=== PATIENT | female | born 1985 | race African-American/Black ===

== ENCOUNTER 2021-12-08 10:24 | Emergency (ER) | payer MEDICAID, OTHER ==
[~2021-12-08] VITALS: Ht 160 cm; Wt 87.5 kg
[2021-12-08] MEDS ORDERED: SODIUM CHLORIDE 0.9% 500 ML IVB ONE (10:45)
[2021-12-08] MEDS ORDERED: MORPHINE SULFATE 4 MG/ML SYR/VIAL IV ONE (10:45)
[2021-12-08] MEDS ORDERED: ONDANSETRON HCL 4 MG/2 ML VIAL IV ONE (10:45)
[2021-12-08 11:09] LABS: Basophils # (auto) 0 10 ^3/uL (0-0.2); Basophils % (auto) 0.5 % (0.0-2.0); Eosinophils # (auto) 0.1 10 ^3/uL (0-0.8); Eosinophils % (auto) 1.1 % (0.0-7.0); Hematocrit 42.5 % (36.0-46.0); Hemoglobin 14.4 g/dL (12.2-16.2); Lymphocytes # (auto) 0.7 10 ^3/uL (0.4-5.4); Lymphocytes % (auto) 13.4 % (10.0-50.0); Mean Corpuscular Hemoglobin 31.4 pg (28.0-32.0); Mean Corpuscular Hgb Conc. 33.8 g/dL (32.0-36.0); Monocytes # (auto) 0.4 10 ^3/uL (0-1.3); Monocytes % (auto) 7.1 % (0.0-12.0); Neutrophils # (auto) 4.3 10 ^3/uL (1.6-8.6); Neutrophils % (auto) 77.9 % (37.0-80.0); Nucleated Red Blood Cells % 0.1 %; Red Blood Cells 4.57 10^6/uL (4.0-5.20); Red Cell Distribution Width 13.7 % (11.8-14.3); White Blood Cell 5.6 10^3/uL (4.4-10.8)
[2021-12-08 11:33] LABS: Urine Bacteria NONE SEEN /hpf (None Seen); Urine Blood TRACE /uL (Negative); Urine Mucus FEW (None Seen); Urine Specific Gravity 1.019 (1.001-1.035); Urine WBC <1 /hpf (0 - 5)
[2021-12-08 11:35] LABS: Albumin 3.6 g/dL (3.4-5.0); Calcium 8.6 mg/dL (8.5-10.1)
[2021-12-08 11:37] LABS: BUN/Creatinine Ratio 15.6
[2021-12-08 12:26] LABS: Bilirubin, Total 0.6 mg/dL (0.2-1.0); Total Protein 7.4 g/dL (6.4-8.2)
[2021-12-08] MEDS ORDERED: TRAM-297 PO (12:32)
[2021-12-08] MEDS ORDERED: ONDA-144 PO (12:32)
[2021-12-08 13:04] VITALS: BP 138/80
== END 2021-12-08 13:06 | disposition home or self-care (01) ==
LOC: ER 10:24
DX: R10.30 Lower abdominal pain, unspecified (principal); R11.0 Nausea; R19.7 Diarrhea, unspecified; I10 Essential (primary) hypertension; F17.210 Nicotine dependence, cigarettes, uncomplicated; Z79.899 Other long term (current) drug therapy
CPT/HCPCS: 36415; 74176; 80053; 81001; 81025; 82150; 83690; 84702; 85025; 96361; 96374; 96375; 99284; J2270; J2405; J7030

== ENCOUNTER 2023-01-31 09:04 | Emergency (ER) | payer MEDICAID ==
[~2023-01-31] VITALS: Ht 160 cm; Wt 97.4 kg
[~2023-01-31 09:04] MED LIST: ONDA-144 PO; TRAM-297 PO
[2023-01-31] MEDS ORDERED: hydrALAZINE HCL 20 MG/ML VL IV ONE ×2 (10:00→12:00)
[2023-01-31] MEDS ORDERED: ONDANSETRON HCL 4 MG/2 ML VIAL IV ONE (10:30)
[2023-01-31] MEDS ORDERED: diphenhdrAMINE HCL 50 MG/1 ML VL IV ONE (10:30)
[2023-01-31] MEDS ORDERED: KETOROLAC TROMETH 30 MG/ML 1ML VIAL IV ONE (10:30)
[2023-01-31 10:47] LABS: Albumin 3.3 g/dL (3.4-5.0); Calcium 8.2 mg/dL (8.5-10.1); Magnesium 2.3 mg/dL (1.6-2.6); Potassium 3.9 mmol/L (3.5-5.1)
[2023-01-31 10:51] LABS: BUN/Creatinine Ratio 15.6 (10.0-20.0); Bilirubin, Total 0.5 mg/dL (0.2-1.0); Total Protein 7.1 g/dL (6.4-8.2)
[2023-01-31 11:21] LABS: Basophils # (auto) 0 10 ^3/uL (0-0.2)
[2023-01-31 11:24] LABS: Basophils % (auto) 0.5 % (0.0-2.0); Eosinophils # (auto) 0.2 10 ^3/uL (0-0.8); Eosinophils % (auto) 1.9 % (0.0-7.0); Hematocrit 40.4 % (36.0-46.0); Hemoglobin 13.7 g/dL (12.2-16.2); Lymphocytes # (auto) 1.6 10 ^3/uL (0.4-5.4); Lymphocytes % (auto) 17.3 % (10.0-50.0); Mean Corpuscular Hemoglobin 31.1 pg (28.0-32.0); Mean Corpuscular Hgb Conc. 33.9 g/dL (32.0-36.0); Mean Corpuscular Volume 91.6 fL (80.0-100.0); Monocytes # (auto) 0.6 10 ^3/uL (0-1.3); Monocytes % (auto) 6.9 % (0.0-12.0); Neutrophils # (auto) 6.6 10 ^3/uL (1.6-8.6); Neutrophils % (auto) 73.4 % (37.0-80.0); Nucleated Red Blood Cells % 0.1 %; Red Blood Cells 4.41 10^6/uL (4.0-5.20); Red Cell Distribution Width 13.8 % (11.8-14.3)
[2023-01-31 11:56] LABS: Urine WBC None Seen /hpf (0 - 5)
[2023-01-31] MEDS ORDERED: NAP500T PO (12:16)
[2023-01-31] MEDS ORDERED: ONDA-144 PO (12:16)
[2023-01-31 12:23] LABS: Urine Bacteria NONE SEEN /hpf (None Seen); Urine Blood Negative /uL (Negative); Urine Specific Gravity 1.005 (1.001-1.035)
[2023-01-31 14:45] VITALS: BP 149/84
== END 2023-01-31 15:00 | disposition home or self-care (01) ==
LOC: ER 09:04
DX: G43.909 Migraine, unspecified, not intractable, without status migrainosus (principal); I16.0 Hypertensive urgency; I10 Essential (primary) hypertension; F17.210 Nicotine dependence, cigarettes, uncomplicated; R10.2 Pelvic and perineal pain; Z98.51 Tubal ligation status
CPT/HCPCS: 36415; 80053; 81001; 81025; 83735; 84484; 84702; 85025; 93005; 96374; 96375; 96376; 99284; J0360; J1200; J1885; J2405

== ENCOUNTER 2024-10-15 22:39 | Emergency (ER) | payer MEDICAID ==
[~2024-10-15] VITALS: Ht 160 cm; Wt 99.1 kg
[~2024-10-15 22:39] MED LIST changes: +NAP500T PO
[2024-10-15] MEDS: cloNIDine HCL 0.1 MG TAB PO ONE (23:00)
[2024-10-15] MEDS: FLUORESCEIN SOD OPTH TEST STRIP RIGHTEYE ONE (23:20)
[2024-10-15 23:21] VITALS: PULSE 97; RESP 18; TEMP 98.2; O2SAT 99
[2024-10-15] MEDS: ERYTHROMY OPTH OINT 5mg/gm 1gm or 3.5gm tube OP ONE (23:39)
[2024-10-15] MEDS ORDERED: ERY05OO OP (23:44)
[2024-10-15] MEDS ORDERED: AUG875T PO (23:44)
[2024-10-15] MEDS ORDERED: CLIN1CAP70 PO (23:44)
--- NOTE | 2024-10-15 23:45 | ED.PDOC ---
Eye-HPI HPI Comments 38-year-old female with past medical history pertinent for HTN, presents to ED for right eye discomfort x 1 day, associated with purulent discharge, swelling, redness, headache. Patient denies any recent trauma or injury. She denies any fever, chills, nausea, vomiting, pain with eye movement, facial numbness, facial tingling. She reports that she felt like there was an eyelash in her eye after which she rubbed her eye and the symptoms got worse. Patient states that she flushed her eye at home without relief of symptoms. No alleviating or aggravating factors. Chief Complaint: Eye Problem Time Seen by MD: 22:52 Reviewed Notes: Nurses Notes, Medications, Allergies Allergies: Coded Allergies: NO KNOWN ALLERGIES (Unverified , 12/08/21) Home Meds Active Scripts Ondansetron (Zofran) 4 Mg Tab, 4 MG PO Q8HP PRN, #14 MG Prov:JAYASHREE DE LA ROSA MD 01/31/23 Naproxen (NAPROSYN TABLET) 500 Mg Tb, 1 TAB PO BID, #20 TAB 1 Refill Prov:JAYASHREE DE LA ROSA MD 01/31/23 Tramadol Hcl (Ultram) 50 Mg Tab, 1 TAB PO Q6HR, #30 TAB Prov:RAOUL HERNANDEZ MD 12/08/21 Ondansetron (Zofran) 4 Mg Tab, 1 TAB PO Q6HR, #20 TAB Prov:RAOUL HERNANDEZ MD 12/08/21 Mode of Arrival: Ambulatory Past Medical History PAST MEDICAL HISTORY: HTN Surgical History: 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 Family History Family History: Family hx of heart ángel, Family hx of HTN, Family hx of stroke Social History Smoker: Cigarettes Alcohol: Occasionally Drugs: Denies Drug Use Lives In: Home Constitutional: denies: chills, diaphoresis, fatigue, fever, malaise, sweats, weakness, others EENTM: reports: eye pain, eye redness; denies: blurred vision, double vision, ear bleeding, ear discharge, ear drainage, ear pain, ear ringing, hearing loss, mouth pain, mouth swelling, nasal discharge, nose bleeding, nose congestion, nose pain, photophobia, tearing, throat pain, throat swelling, voice changes, others Respiratory: denies: cough, hemoptysis, orthopnea, SOB at rest, shortness of breath, SOB with excertion, stridor, wheezing, others Cardiovascular: denies: chest pain, dizzy spells, diaphoresis, Dyspnea on exertion, edema, irregular heart beat, left arm pain, lightheadedness, palpitations, PND, syncope, others Gastrointestinal: denies: abdomen distended, abdominal pain, blood streaked bowels, constipated, diarrhea, dysphagia, difficulty swallowing, hematemesis, melena, nausea, poor appetite, poor fluid intake, rectal bleeding, rectal pain, vomiting, others Genitourinary: denies: abnormal vagina bleeding, burning, dyspareunia, dysuria, flank pain, frequency, hematuria, incontinence, pain, , vagina discharge, urgency, others Neurological: reports: headache; denies: dizziness, fainting, left sided numbness, left sided weakness, numbness, paresthesia, pre-existing deficit, right sided numbness, right sided weakness, seizure, speech problems, tingling, tremors, weakness, others Musculoskeletal: denies: back pain, gout, joint pain, joint swelling, muscle pain, muscle stiffness, neck pain, others Integumetry: denies: bruises, change in color, change in hair/nails, dryness, laceration, lesions, lumps, rash, wounds, others Allergic/Immunocompromised: denies: Difficulty Healing, Frequent Infections, Hives, Itching, others Hematologic/Lymphatic: denies: anemia, blood clots, easy bleeding, easy bruising, swollen glands, others Endocrine: denies: excessive hunger, excessive sweating, excessive thirst, excessive urination, flushing, intolerance to cold, intolerance to heat, unexplained weight gain, unexplained weight loss, others Psychiatric: denies: anxiety, bipolar disorder, depression, hopeless, panic disorder, schizophrenia, sleepless, suicidal, others All Other Systems: Reviewed and Negative Physical Exam General Appearance: No Apparent Distress, Normal HEENT: Pharynx Normal, TMs Normal, Other (Right conjunctiva is injected. Purulent discharge noted. There is mild surrounding orbital of edema. No tenderness to palpation to the globe. Normal eye movement. Negative opthalmoplegia. No signs of intraorbital trauma) Neck: Full Range of Motion, Non-Tender, Normal, Normal Inspection Respiratory: Chest Non-Tender, Lungs Clear, No Accessory Muscle Use, No Respiratory Distress, Normal Breath Sounds Cardiovascular: No Edema, No JVD, No Murmur, No Gallop, Normal Peripheral Pulses, Regular Rate/Rhythm Breast Exam: Deferred Gastrointestinal: No Organomegaly, Non Tender, No Pulsatile Mass, Normal Bowel Sounds, Soft Genitalia: Deferred Pelvic: Deferred Rectal: Deferred Extremities: No calf tenderness, Normal capillary refill, Normal inspection, Normal range of motion, Non-tender, No pedal edema Musculoskeletal : Apperance: Normal Neurologic: Alert, label maker II-XII nml as Tested, No Motor Deficits, Normal Affect, Normal Mood, No Sensory Deficits Cerebellar Function: Normal Reflexes: Normal Skin: Dry, Normal Color, Warm Lymphatic: No Adenopathy Was a procedure done? Was a procedure done?: No EENT DIFF Eye: Conjunctivitis, Allergic, Bacterial, Viral, Orbital Cellulits, Periorbital Cellulits X-Ray, Labs, Meds, VS Vital Signs Date Time Temp Pulse Resp B/P (MAP) Pulse Ox O2 Delivery O2 Flow Rate FiO2 10/15/24 23:21 98.2 97 18 161/119 (133) 99 98.2 10/15/24 23:21 97 18 99 Room Air 10/15/24 23:00 161/119 10/15/24 22:45 98.2 97 18 161/119 (133) 99 Current Medications Medications (Trade) Dose Ordered Sig/Catherine Route Start Time Stop Time Status Last Admin Clonidine HCl (Catapres Tablet) 0.1 mg ONCE ONCE PO 10/15/24 23:00 10/15/24 23:01 DC 10/15/24 23:00 Fluorescein Sodium (Ful-Modesta) 1 mg ONCE ONCE RIGHTEYE 10/15/24 23:15 10/15/24 23:23 DC 10/15/24 23:20 X-Ray, Labs, Meds, VS Comment MDM: Patient with history as above presented with right eye pain. History obtained from patient. Patient was nontoxic, stable, afebrile, ambulatory, no acute distress. Exam as above. Reviewed external records. All findings were discussed with the patient. Differential diagnosis considered. Overall presentation is consistent with bacterial conjunctivitis with possible early periorbital cellulitis. Low suspicion for orbital cellulitis, intra orbital trauma, globe rupture, foreign body. Patient was treated with clonidine for blood pressure with improvement in symptoms. Patient was given a dose of erythromycin ointment in the ED. Patient was reevaluated and vital signs were reviewed. Consideration was given for admission, but the patient was stable for outpatient management. Prescribed erythromycin ointment for bacterial conjunctivitis treatment. Also prescribed oral antibiotics to cover for possible early onset of periorbital cellulitis. Disposition: Discussed the need to follow up diagnostics, including incidental findings. Discharged the patient with instructions to obtain outpatient follow up in 1-2 days of today's symptoms and findings, with strict return precautions if patient develops new or worsening symptoms. This medical document was created using the Novel [employer] system. Although this document has been carefully reviewed, there may still be some ph onetic and typographical errors, which are due to imperfections of the software program, and do not reflect any compromise in the patient's medical care. Time of 1ST Reevaluation: 23:42 Reevaluation 1ST: Improved Patient Education/Counseling: Diagnosis, Treatment, Prognosis, Need For Follow Up Family Education/Counseling: No Family Present Departure 1 Departure Time of Disposition: 23:41 Impression: Primary Impression: Bacterial conjunctivitis Disposition: 01 HOME / SELF CARE / HOMELESS Condition: Fair e-Prescriptions Erythromycin (Erythromycin) 5 Mg/Gm Oin 1 MG OP 5XD for 7 Days, #1 OIN Prov: JOSE DE JESUS VASQUEZ 10/15/24 Amoxicillin & Pot Clavulanate (AUGMENTIN TABLET) 875 Mg Tb 875 MG PO BID for 7 Days, #14 TAB Prov: JOSE DE JESUS VASQUEZ 10/15/24 Clindamycin Hcl (Clindamycin Hcl) 300 Mg Cap 1 CAP PO TID for 7 Days, #21 CAP Prov: JOSE DE JESUS VASQUEZ 10/15/24 Critical Care Note Critical Care Time?: No Stability Stability form required: No Heart Score Heart Score: Heart Score Response (Comments) Value History N/A 0 EKG N/A 0 Age N/A 0 Risk Factors N/A 0 Troponin N/A 0 Total 0 JOSE DE JESUS VASQUEZ Oct 15, 2024 23:45
[2024-10-15 23:49] VITALS: BP 168/102
[2024-10-15] MEDS ORDERED: FLUC150T38 PO (23:51)
== END 2024-10-16 00:15 | disposition home or self-care (01) ==
LOC: ER 22:39
DX: H10.89 Other conjunctivitis (principal); H57.11 Ocular pain, right eye; H57.12 Ocular pain, left eye; I10 Essential (primary) hypertension; F17.210 Nicotine dependence, cigarettes, uncomplicated; Z98.51 Tubal ligation status; Z79.899 Other long term (current) drug therapy

== ENCOUNTER 2025-03-09 17:03 | Emergency (ER) | payer MEDICAID ==
[~2025-03-09] VITALS: Ht 160 cm; Wt 94.0 kg
[~2025-03-09 17:03] MED LIST changes: +AUG875T PO; +CLIN1CAP70 PO; +ERY05OO OP; +FLUC150T38 PO
[2025-03-09 17:57] LABS: Urine Bacteria None Seen /hpf (None Seen)
--- NOTE | 2025-03-09 18:00 | ED.PDOC ---
GI ASSESSMENT HPI Comments This is a 39 year old female presenting to the ED with chief complaint of abdominal pain. Patient reports that she has been experiencing epigastric abdominal pain with associated radiation to her back, nausea, vomiting, chills, and weakness since last night. Patient relays that her pain is a 10/10. Patient denies any diarrhea, dysuria, fever, headache, chest pain, SOB, hematuria, or flank pain. Chief Complaint: Abdominal Pain Time Seen by MD: 17:58 Primary Care Provider: RUBEN Reviewed Notes: Nurses Notes, Medications, Allergies Allergies: Coded Allergies: NO KNOWN ALLERGIES (Unverified , 12/08/21) Home Meds Active Scripts Ondansetron Odt 4MG Tab (ZOFRAN PO) 4 Mg Tb, 4 MG PO Q8HP PRN for 5 Days, #15 TAB ODT TAB-DISSOLVE IN MOUTH, THEN SWALLOW Prov:RAOUL HERNANDEZ MD 03/09/25 Pantoprazole Sodium Sesquihydr (Protonix) 40 Mg Tab, 40 MG PO DAILY, #30 TAB Prov:RAOUL HERNANDEZ MD 03/09/25 Fluconazole (Diflucan) 150 Mg Tab, 1 TAB PO ONCE, #1 TAB 1 Refill Prov:JOSE DE JESUS VASQUEZ 10/15/24 Erythromycin (Erythromycin) 5 Mg/Gm Oin, 1 MG OP 5XD for 7 Days, #1 OIN Prov:JOSE DE JESUS VASQUEZ 10/15/24 Amoxicillin & Pot Clavulanate (AUGMENTIN TABLET) 875 Mg Tb, 875 MG PO BID for 7 Days, #14 TAB Prov:JOSE DE JESUS VASQUEZ 10/15/24 Clindamycin Hcl (Clindamycin Hcl) 300 Mg Cap, 1 CAP PO TID for 7 Days, #21 CAP Prov:JOSE DE JESUS VASQUEZ 10/15/24 Ondansetron (Zofran) 4 Mg Tab, 4 MG PO Q8HP PRN, #14 MG Prov:JAYASHREE DE LA ROSA MD 01/31/23 Naproxen (NAPROSYN TABLET) 500 Mg Tb, 1 TAB PO BID, #20 TAB 1 Refill Prov:JAYASHREE DE LA ROSA MD 01/31/23 Tramadol Hcl (Ultram) 50 Mg Tab, 1 TAB PO Q6HR, #30 TAB Prov:RAOUL HERNANDEZ MD 12/08/21 Ondansetron (Zofran) 4 Mg Tab, 1 TAB PO Q6HR, #20 TAB Prov:RAOUL HERNANDEZ MD 12/08/21 Information Source: Patient Mode of Arrival: Ambulatory Timing: Days Duration: Since onset Prehospital treatment: None Quality: Sharp Vomitus: Watery Stool: Normal Severity: Moderate Recent: None Recent Hx of: None Pain Location: Epigastric Modifying Factors: Nothing Associated sign and symptoms: Nausea, Vomiting, Abdominal Pain Past Medical History PAST MEDICAL HISTORY: HTN Past Medical History (Other): IBS Surgical History: BTL Surgical History (Other): 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 Family History Family History: Reviewed,noncontributory to illness, Family hx of heart ángel, Family hx of HTN, Family hx of stroke Social History Smoker: Cigarettes Alcohol: Occasionally Drugs: Marijuana Lives In: Home Constitutional: reports: chills, weakness; denies: diaphoresis, fatigue, fever, malaise, sweats, others EENTM: denies: blurred vision, double vision, ear bleeding, ear discharge, ear drainage, ear pain, ear ringing, eye pain, eye redness, hearing loss, mouth pa in, mouth swelling, nasal discharge, nose bleeding, nose congestion, nose pain, photophobia, tearing, throat pain, throat swelling, voice changes, others Respiratory: denies: cough, hemoptysis, orthopnea, SOB at rest, shortness of breath, SOB with excertion, stridor, wheezing, others Cardiovascular: denies: chest pain, dizzy spells, diaphoresis, Dyspnea on exertion, edema, irregular heart beat, left arm pain, lightheadedness, palpitations, PND, syncope, others Gastrointestinal: reports: abdominal pain, nausea, vomiting; denies: abdomen distended, blood streaked bowels, constipated, diarrhea, dysphagia, difficulty swallowing, hematemesis, melena, poor appetite, poor fluid intake, rectal bleeding, rectal pain, others Genitourinary: denies: abnormal vagina bleeding, burning, dyspareunia, dysuria, flank pain, frequency, hematuria, incontinence, pain, , vagina discharge, urgency, others Neurological: denies: dizziness, fainting, headache, left sided numbness, left sided weakness, numbness, paresthesia, pre-existing deficit, right sided numbness, right sided weakness, seizure, speech problems, tingling, tremors, weakness, others Musculoskeletal: denies: back pain, gout, joint pain, joint swelling, muscle pain, muscle stiffness, neck pain, others Integumetry: denies: bruises, change in color, change in hair/nails, dryness, laceration, lesions, lumps, rash, wounds, others Allergic/Immunocompromised: denies: Difficulty Healing, Frequent Infections, Hives, Itching, others Hematologic/Lymphatic: denies: anemia, blood clots, easy bleeding, easy bruising, swollen glands, others Endocrine: denies: excessive hunger, excessive sweating, excessive thirst, excessive urination, flushing, intolerance to cold, intolerance to heat, unexplained weight gain, unexplained weight loss, others Psychiatric: denies: anxiety, bipolar disorder, depression, hopeless, panic disorder, schizophrenia, sleepless, suicidal, others All Other Systems: Reviewed and Negative Physical Exam General Appearance: Moderate Distress, Obese HEENT: Normal ENT Inspection, Pharynx Normal, TMs Normal Neck: Full Range of Motion, Non-Tender, Normal, Normal Inspection Respiratory: Chest Non-Tender, Lungs Clear, No Accessory Muscle Use, No Respiratory Distress, Normal Breath Sounds Cardiovascular: No Edema, No JVD, No Murmur, No Gallop, Normal Peripheral Pulses, Regular Rate/Rhythm Breast Exam: Deferred Gastrointestinal: Epigastric, No Organomegaly, No Pulsatile Mass, Normal Bowel Sounds, Soft, Tenderness Genitalia: Deferred Pelvic: Deferred Rectal: Deferred Extremities: No calf tenderness, Normal capillary refill, Normal inspection, Normal range of motion, Non-tender, No pedal edema Musculoskeletal : Apperance: Normal Neurologic: Alert, electrician radio II-XII nml as Tested, Motor Weakness, Normal Affect, Normal Mood, No Sensory Deficits Cerebellar Function: Normal Reflexes: Normal Skin: Dry, Normal Color, Warm Lymphatic: No Adenopathy Was a procedure done? Was a procedure done?: No GI differential Dx Differential Diagnosis: Appendicitis, Cholangitis, Cholecystitis, Gastritis/PUD, Gastroenteritis, Inflammatory BD, Ischemic Bowel, Electrolyte Imbalance, Food Poisoning X-Ray, Labs, Meds, VS Vital Signs Date Time Temp Pulse Resp B/P (MAP) Pulse Ox O2 Delivery O2 Flow Rate FiO2 03/09/25 20:07 98.4 72 18 148/107 (121) 98 98.4 6/6/25 17:27 98.4 74 20 168/112 (130) 97 98.4 Lab Test 03/09/25 18:04 03/09/25 00:00 Range/Units White Blood Count 9.3 4.4-10.8 10^3/uL Red Blood Count 4.66 4.0-5.20 10^6/uL Hemoglobin 14.1 12.2-16.2 g/dL Hematocrit 41.6 36.0-46.0 % Mean Corpuscular Volume 89.2 80.0-100.0 fL Mean Corpuscular Hemoglobin 30.3 28.0-32.0 pg Mean Corpuscular Hemoglobin Concent 33.9 32.0-36.0 g/dL Red Cell Distribution Width 14.2 11.8-14.3 % Platelet Count 260 140-450 10^3/uL Mean Platelet Volume 8.9 6.9-10.8 fL Neutrophils (%) (Auto) 83.4 H 37.0-80.0 % Lymphocytes (%) (Auto) 11.7 10.0-50.0 % Monocytes (%) (Auto) 3.9 0.0-12.0 % Eosinophils (%) (Auto) 0.6 0.0-7.0 % Basophils (%) (Auto) 0.4 0.0-2.0 % Neutrophils # (Auto) 7.8 1.6-8.6 10 ^3/uL Lymphocytes # (Auto) 1.1 0.4-5.4 10 ^3/uL Monocytes # (Auto) 0.4 0-1.3 10 ^3/uL Eosinophils # (Auto) 0.1 0-0.8 10 ^3/uL Basophils # (Auto) 0 0-0.2 10 ^3/uL Nucleated Red Blood Cells 0.0 % Sodium Level 142 136-145 mmol/L Potassium Level 3.8 3.5-5.1 mmol/L Chloride Level 112 H 98-107 mmol/L Carbon Dioxide Level 22 20-31 mmol/L Anion Gap 8 5-15 Blood Urea Nitrogen 8 L 9-23 mg/dL Creatinine 0.69 0.550-1.02 mg/dL Glomerular Filtration Rate Calc 113 >90 mL/min BUN/Creatinine Ratio 11.6 10.0-20.0 Serum Glucose 94 74-106 mg/dL Calcium Level 9.5 8.7-10.4 mg/dL Total Bilirubin 0.5 0.2-1.0 mg/dL Aspartate Amino Transferase (AST) 12 L 13-40 U/L Alanine Aminotransferase (ALT) < 9 7-40 U/L Alkaline Phosphatase 69 46-116 U/L Total Protein 7.6 5.7-8.2 g/dL Albumin 4.5 3.2-4.8 g/dL Lipase 29 12-53 U/L Beta HCG, Quantitative 0.6 L 1.5-4.2 mIU/mL Urine Color Light-yellow Yellow Urine Clarity Clear Clear Urine pH 7.0 5.0-9.0 Urine Specific [place] 1.023 1.001-1.035 Urine Protein Negative Negative Urine Ketones Negative Negative Urine Blood Negative Negative /uL Urine Nitrite Negative Negative Urine Bilirubin Negative Negative Urine Urobilinogen Normal Negative mg/dL Urine Leukocyte Esterase Negative Negative /uL Urine RBC 1 0 - 4 /hpf Urine Microscopic WBC < 1 0-5 /HPF Urine Squamous Epithelial Cells Few <5 /hpf Urine Bacteria None seen None Seen /hpf Urine Glucose Normal Normal mg/dL Gallbladder US indicates: NORMAL ABDOMINAL ULTRASOUND. The patient's urine test is negative The patient's CBC is within normal limits The chemistry panel is within normal limits The lipase and liver enzymes are negative The test is negative The patient was given Protonix as well as Compazine and morphine for the pain and nausea The patient is being discharged The patient will follow up with the primary care doctor The patient will return to the emergency department's condition worsens. Images Reviewed?: Images reviewed and evaluated by me Time of 1ST Reevaluation: 19:46 Reevaluation 1ST: Unchanged Patient Education/Counseling: Diagnosis, Treatment, Prognosis, Need For Follow Up Family Education/Counseling: No Family Present Additional Information Reviewed patient's previous visit(s): 10/15/24 for bacterial conjunctivitis The following tests were ordered, and results were reviewed by me: CBC, CMP, UA, Lipase, BHCG Quant, Gallbladder US Additional information was gathered from interviewing the following independent historian: NONE I reviewed and agreed with the following test results read by other provider: Gallbladder US I discussed treatments and results with medical personnel and: Patient Comprehensive systems review obtained and negative except for what is stated in the HPI. Departure 1 Departure Time of Disposition: 20:17 Impression: Primary Impression: Abdominal pain of unknown etiology Additional Impression: Cannabinoid hyperemesis syndrome Disposition: HOME / SELF CARE / HOMELESS Condition: Fair e-Prescriptions Ondansetron Odt 4MG Tab (ZOFRAN PO) 4 Mg Tb 4 MG PO Q8HP PRN for 5 Days, #15 TAB ODT TAB-DISSOLVE IN MOUTH, THEN SWALLOW Prov: RAOUL HERNANDEZ MD 03/09/25 Pantoprazole Sodium Sesquihydr (Protonix) 40 Mg Tab 40 MG PO DAILY, #30 TAB Prov: RAOUL HERNANDEZ MD 03/09/25 Discharged With: Self Critical Care Note Critical Care Time?: No Stability Stability form required: No Heart Score Heart Score: Heart Score Response (Comments) Value History N/A 0 EKG N/A 0 Age N/A 0 Risk Factors N/A 0 Troponin N/A 0 Total 0 I personally scribed for RAOUL HERNANDEZ MD ([email or web address]) on 03/09/25 at 18:00. Electronically submitted by Tanvir Sherwood ([email or web address]). I personally scribed for RAOUL HERNANDEZ MD ([email or web address]) on 03/09/25 at 18:12. Electronically submitted by Tanvir Sherwood ([email or web address]). I personally scribed for RAOUL HERNANDEZ MD ([email or web address]) on 03/09/25 at 18:51. Electronically submitted by Tanvir Sherwood ([email or web address]). RAOUL HERNANDEZ MD Mar 09, 2025 18:00
[2025-03-09 18:24] LABS: Basophils # (auto) 0 10 ^3/uL (0-0.2); Basophils % (auto) 0.4 % (0.0-2.0); Eosinophils # (auto) 0.1 10 ^3/uL (0-0.8); Eosinophils % (auto) 0.6 % (0.0-7.0); Hematocrit 41.6 % (36.0-46.0); Hemoglobin 14.1 g/dL (12.2-16.2); Lymphocytes # (auto) 1.1 10 ^3/uL (0.4-5.4); Lymphocytes % (auto) 11.7 % (10.0-50.0); Mean Corpuscular Hemoglobin 30.3 pg (28.0-32.0); Mean Corpuscular Hgb Conc. 33.9 g/dL (32.0-36.0); Mean Corpuscular Volume 89.2 fL (80.0-100.0); Monocytes # (auto) 0.4 10 ^3/uL (0-1.3); Monocytes % (auto) 3.9 % (0.0-12.0); Neutrophils # (auto) 7.8 10 ^3/uL (1.6-8.6); Neutrophils % (auto) 83.4 % (37.0-80.0); Platelet Count (auto) 260 10^3/uL (140-450); Red Blood Cells 4.66 10^6/uL (4.0-5.20); Red Cell Distribution Width 14.2 % (11.8-14.3); White Blood Cell 9.3 10^3/uL (4.4-10.8)
[2025-03-09 18:25] LABS: Urine Blood Negative /uL (Negative); Urine Clarity Clear (Clear); Urine Color Light-Yellow (Yellow); Urine Protein, UAD Negative (Negative); Urine Specific Gravity 1.023 (1.001-1.035); Urine Squamous Epithelial Cell FEW /hpf (<5); Urine Urobilinogen Normal (Negative); Urine WBC < 1 /HPF (0-5)
[2025-03-09 18:40] LABS: Albumin 4.5 g/dL (3.2-4.8); Alkaline Phosphatase 69 U/L (46-116); Anion Gap 8 (5-15); BUN/Creatinine Ratio 11.6 (10.0-20.0); Bilirubin, Total 0.5 mg/dL (0.2-1.0); Calcium 9.5 mg/dL (8.7-10.4); Carbon Dioxide 22 mmol/L (20-31); Glucose 94 mg/dL (74-106); Potassium 3.8 mmol/L (3.5-5.1); Sodium 142 mmol/L (136-145); Total Protein 7.6 g/dL (5.7-8.2)
[2025-03-09 18:45] LABS: Alanine Aminotransferase < 9 U/L (7-40); Aspartate Aminotransferase 12 U/L (13-40); Blood Urea Nitrogen 8 mg/dL (9-23); Chloride 112 mmol/L (98-107)
--- NOTE | 2025-03-09 18:45 | DVH ---
ULTRASOUND ABDOMEN, LIMITED RIGHT UPPER QUADRANT: REASON FOR EXAM: Abdominal pain. Nausea and vomiting. TECHNIQUE: Real-time sector scans in the transverse and longitudinal planes were obtained through th e right upper quadrant of the abdomen. FINDINGS: The liver is of normal size and contour. There is no intrahepatic nor extrahepatic biliar y ductal dilatation. There is hepatopetal flow in the portal vein. The common bile duct measures 5 m m. No gallstones or sludge are identified. There is no gallbladder wall thickening nor pericholecys tic fluid. There is no sonographic Kline's sign. The visualized portion of the pancreas is unremarkable. The right kidney measures 10.3 cm. No hydronephrosis or nephrolithiasis is identified. There is no evidence of right renal mass or cyst. The visualized portions of the abdominal aorta demonstrate no evidence of aneurysmal dilatation. The visualized inferior vena cava is unremarkable. There is no free fluid identified in the right upper quadrant. IMPRESSION: NORMAL ABDOMINAL ULTRASOUND.
[2025-03-09 18:58] LABS: Lipase 29 U/L (12-53)
[2025-03-09] MEDS ORDERED: PANT40TA2 PO (20:16)
[2025-03-09] MEDS ORDERED: ZOFR4T PO (20:16)
[2025-03-09 20:18] VITALS: PULSE 68; RESP 14; TEMP 98.2; O2SAT 98
[2025-03-09] MEDS: MORPHINE SULFATE 4 MG/ML SYR/VIAL IV ONE (20:27)
[2025-03-09] MEDS: PROCHLORPERAZINE EDISYLATE 5 MG/ML 2ML VIAL IV ONE (20:27)
[2025-03-09] MEDS: PANTOPRAZOLE 40 MG/10 ML VIAL INJ IV ONE (20:27)
[2025-03-09] MEDS: SODIUM CHLORIDE 0.9% 1,000 ML IVB ONE (20:27)
[2025-03-09 20:59] VITALS: BP 160/98; PULSE 60; RESP 18
== END 2025-03-09 21:01 | disposition home or self-care (01) ==
LOC: ER 17:03
DX: R11.2 Nausea with vomiting, unspecified (principal); F12.90 Cannabis use, unspecified, uncomplicated; R10.13 Epigastric pain; R53.1 Weakness; R68.83 Chills (without fever); I10 Essential (primary) hypertension; F17.210 Nicotine dependence, cigarettes, uncomplicated; Z98.890 Other specified postprocedural states; Z79.899 Other long term (current) drug therapy
CPT/HCPCS: 36415; 76705; 80053; 81001; 83690; 84702; 85025; 96361; 96374; 96375; 99285; J0780; J2270; J2470; J7030